=== PATIENT | female | born 1990 | race Caucasian/White ===

== ENCOUNTER 2017-07-18 00:31 | Inpatient (IN) | payer OTHER ==
[~2017-07-18] VITALS: Ht 154.9 cm; Wt 77.1 kg
[~2017-07-18 00:31] MED LIST: NORCO 5-325 TA1 EAC1 PO
[2017-07-18 00:46] VITALS: BP 119/67
[2017-07-18] MEDS ORDERED: LEXAPRO20 MG PO (00:51)
[2017-07-18] MEDS ORDERED: LAMICTAL100 MG PO (00:51)
[2017-07-18] MEDS ORDERED: BUSPIRONE HCL10 MG PO (00:51)
[2017-07-18 01:13] LABS: HEMATOCRIT 38.3 % (37.0-47.0); HEMOGLOBIN 12.3 gm/dL (12.0-15.0); MCH 26.5 pg (26.0-34.0); MCHC 32.2 g/dL (28.0-37.0); MCV 82.3 fL (80.0-100.0); MPV 6.2 fl. (7.2-11.1); NUCLEATED RBCS 0 /100WBC; PLATELET COUNT* 326 thou/uL (150-400); RBC 4.65 mil/uL (4.20-5.00); RDW-CV 13.3 % (10.5-14.5); WBC 10.8 thou/uL (4.0-11.0)
[2017-07-18 01:20] LABS: CALCIUM 9.1 mg/dL (8.5-10.1); CREATININE 0.7 mg/dL (0.6-1.3)
[2017-07-18 01:24] LABS: URINE BILIRUBIN NEGATIVE (Negative); URINE BLOOD NEGATIVE (Negative); URINE CLARITY CLEAR; URINE COLOR STRAW; URINE GLUCOSE-RANDOM NEGATIVE (Negative); URINE KETONES NEGATIVE (Negative); URINE LEUKOCYTES-REFLEX NEGATIVE (Negative); URINE NITRITE-REFLEX NEGATIVE (Negative); URINE PROTEIN NEGATIVE (Negative); URINE SPECIFIC GRAVITY <= 1.005 (1.005-1.030); URINE UROBILINOGEN 0.2 E.U./dl (0.2-1.0)
[2017-07-18 01:25] LABS: ALBUMIN 3.5 g/dL (3.4-5.0); TOTAL BILIRUBIN 0.2 mg/dL (<0.1-1.0); TOTAL PROTEIN 7.3 g/dL (6.4-8.2)
[2017-07-18 01:33] LABS: AMP/METHAMP Negative (Negative); BARBITURATES Negative (Negative); BENZODIAZEPINES Negative (Negative); COCAINE Negative (Negative); METHADONE Negative (Negative); OPIATES Negative (Negative); PCP Negative (Negative); THC Negative (Negative)
[2017-07-18 01:46] LABS: ABSOLUTE BASOPHILS 0.1 thou/uL (0.0-0.2); ABSOLUTE EOSINOPHILS 0.6 thou/uL (0.0-0.7); ABSOLUTE LYMPHOCYTES 4.8 thou/uL (0.8-5.3); ABSOLUTE NEUTROPHILS 4.3 thou/uL (1.6-8.1); ATYPICAL LYMPHS 2 %; PLATELET ESTIMATE ADEQUATE
[2017-07-18 01:47] LABS: ANISOCYTOSIS Occasional
--- NOTE | 2017-07-18 01:47 | NUR ---
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 WRITHING IN BED, ATTEMPTING TO GET OUT OF BED, TALKING TO NON-PERSONS. UNABLE TO OBTAIN A BP READING R/T EXCESSIVE MVMT/ FLEXION OF ARM. PT RIPPING OFF TELE LEADS, BLAMES THIS ON HER "SON" WHO IS NOT PRESENT IN ROOM.
--- NOTE | 2017-07-18 03:23 | NUR ---
RESTRAINTS CHANGED TO SOFT RESTRAINT ON LEFT ARM AND RT LEG, SYNTHETIC MARQUES REMAIN IN PLACE ON RT ARM AND LT LEG.
--- NOTE | 2017-07-18 03:53 | NUR ---
LEFT LOWER EXTREMITY REMOVED FROM SYNTHETIC LEATHER RESTRAINT. PT REMAINS CALM AT THIS TIME. WILL REASSESS Q15MIN FOR REMOVAL OF OTHER RESTRAI NTS .
--- NOTE | 2017-07-18 04:13 | NUR ---
SYNTHETIC LEATHER RESTRAINT REMOVED FROM RT UPPER EXTREMITY AT THIS TIME.
--- NOTE | 2017-07-18 04:30 | NUR ---
SOFT RESTRAINT REMOVED FROM RT LOWER EXTREMITY AT THIS TIME. PT SOMEWHAT RESTLESS BUT EASILY RE-DIRECTED AT THIS TIME.
--- NOTE | 2017-07-18 04:45 | NUR ---
FINAL RESTRAINT REMOVED FROM LT UPPER EXTREMITY. PT REMAINS CALM AT THIS TIME. REMAINS ON SPO2/TELE/BP MONITORING.
[2017-07-18 06:16] LABS: BE -3.8 mmol/L (-2 to +3); HCO3 21.1 mmol/L (22.0-26.0); PCO2 37.6 mmHg (35.0-45.0); PO2 115.2 mmHg (75.0-100.0); pH 7.366 (7.340-7.450)
[2017-07-18 07:06] LABS: ABSOLUTE EOSINOPHILS 0.1 thou/uL (0.0-0.7); ABSOLUTE LYMPHOCYTES 1.5 thou/uL (0.8-5.3); ABSOLUTE MONOCYTES 0.7 thou/uL (0.0-1.2); ABSOLUTE NEUTROPHILS 5.6 thou/uL (1.6-8.1); BASOPHILS 0.5 %; EOSINOPHILS 1.1 %; HEMATOCRIT 35.5 % (37.0-47.0); HEMOGLOBIN 11.2 gm/dL (12.0-15.0); LYMPHOCYTES 19.2 %; MCH 26.4 pg (26.0-34.0); MCHC 31.5 g/dL (28.0-37.0); MCV 83.7 fL (80.0-100.0); MONOCYTES 8.6 %; MPV 6.2 fl. (7.2-11.1); NUCLEATED RBCS 0 /100WBC; PLATELET COUNT* 290 thou/uL (150-400); POLYS 70.6 %; RBC 4.24 mil/uL (4.20-5.00); RDW-CV 13.4 % (10.5-14.5); WBC 7.9 thou/uL (4.0-11.0)
[2017-07-18 07:27] LABS: ALBUMIN 3.2 g/dL (3.4-5.0); CALCIUM 8.3 mg/dL (8.5-10.1); CREATININE 0.7 mg/dL (0.6-1.3); POTASSIUM 4.5 mmol/L (3.5-5.1); TOTAL BILIRUBIN 0.2 mg/dL (<0.1-1.0); TOTAL PROTEIN 6.6 g/dL (6.4-8.2)
--- NOTE | 2017-07-18 09:15 | NUR ---
PT AWOKE, COMPLETELY CONFUSED BY SURROUNDINGS, EASILY REDIRECTED BACK TO BED BUT TRYING TO PULL O2 OUT. PT IS NOT AWARE OF SITUATION.
[2017-07-18 09:51] VITALS: BP 98/52
[2017-07-18 10:11] LABS: POTASSIUM 4.1 mmol/L (3.5-5.1)
[2017-07-18 10:45] VITALS: BP 109/72
--- NOTE | 2017-07-18 17:06 | EKG ---
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
--- NOTE | 2017-07-18 18:15 | NUR ---
PT A&Ox4 throughout shift. Pt tearful and states she needs to quit abusing oxycodone.
--- NOTE | 2017-07-18 18:29 | NUR ---
Pt A&Ox4 since coming to room. Pt states she wants to leave AMA " I know you cannot hold me here since I am not suicidal" Pt states she knows she needs to quit abusing opiates. 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 Pt up in room with steady gait. Pt instructed that she cannot drive until tomorrow am as she has had multiple sedatives and narcotics today. Pt states her boyfriend is going to pick her up. Dr Renteria notified. Pt signed AMA form. Pt ambulated to ER entrance with steady gait to await her ride
== END 2017-07-18 18:29 | disposition left against medical advice (07) | DRG 894 ==
LOC: M.ERS 00:31 → M.TBA-ER 03:57 → M.ICU 09:44
PROVIDERS: Emergency Medicine; Internal Medicine; ADMIT Internal Medicine
DX: F11.23 Opioid dependence with withdrawal (principal); G93.41 Metabolic encephalopathy; F17.210 Nicotine dependence, cigarettes, uncomplicated; E87.6 Hypokalemia; Z53.21 Procedure and treatment not carried out due to patient leaving prior to being seen by health care provider